=== PATIENT | male | born 1945 | race Caucasian/White ===

== ENCOUNTER 2017-03-12 14:26 | Inpatient (IN) | payer MEDICARE, OTHER ==
[~2017-03-12] VITALS: Ht 182.9 cm; Wt 90.7 kg
[2017-03-12] MEDS ORDERED: XARELTO20 MG PO (14:44)
[2017-03-12] MEDS ORDERED: COZAAR100 MG PO (14:45)
[2017-03-12] MEDS ORDERED: CRESTOR40 MG NG (14:45)
[2017-03-12] MEDS ORDERED: SYNTHROID100 MCG PO (14:46)
[2017-03-12] MEDS ORDERED: HYDROCHLOROTHIA25 MG PO (14:46)
[2017-03-12] MEDS ORDERED: OMEPRAZOLE20 M1 PO (14:47)
[2017-03-12] MEDS ORDERED: KLOR-CON 88 MEQ PO (14:47)
[2017-03-12] MEDS ORDERED: GLUCOTROL XL5 MG PO (14:48)
[2017-03-12] MEDS ORDERED: LASIX20 MG PO (14:49)
[2017-03-12] MEDS ORDERED: METFORMIN HCL1000 MG PO (14:49)
--- NOTE | 2017-03-12 18:48 | NUR ---
PT ARRIVED ON FLOOR FROM ED. PT ALERT AND OREINTATED X4. PLEASANT AND COOPERATIVE. ON VACATION FROM [facility], ANXIOUS TO CONTINUE TO [place]. PT NG TUBE FUNCTIONING WELL, NPO.
--- NOTE | 2017-03-12 19:05 | NUR ---
BEDSIDE SHIFT REPORT RECEIVED FROM CARLINE EVANGELISTA. PT IS RESTING IN BED, HAS NG TO L.I.S. DENIES PAIN. CALL LIGHT IS WITHIN REACH, DENIES FURTHER REQUESTS AT THIS TIME. WILL CONTINUE TO MONITOR.
--- NOTE | 2017-03-12 20:40 | NUR ---
ASSESSMENT COMPLETED. ALERT/ORIENTED. DENIES PAIN. LUNGS CLEAR, RA. HR IRREGUALR, HX AFIB. BOWEL TONES ACTIVE, DENIES NAUSEA. NG TO L.I.S. DRAINING SCANT AMOUNT OF GREEN DRAINAGE. DISCUSSED THAT HE MAY HAVE ICE CHIPS FOR COMFORT, BUT THAT ANYTHING BU MOUTH MAY IMPEDE HEALING AND DELAY DISCHARGE, PT STATES UNDERSTANDING. SKIN INTACT. CMS INTACT. CB, 3UNITS SLIDING SCALE ADMINISTERED. PT DENIES FURTHER REQUESTS AT THIS TIME, CALL LIGHT IS WITHIN REACH.
--- NOTE | 2017-03-12 22:00 | NUR ---
PT HAD NOT VOIDED SINCE ARRIVING TO FLOOR. BLADDER SCAN SHOWED 561ML. INFORMED DR. FLORES WHO STATED TO ENCOURAGE AMBULATION AND CONTINUE TO MONITOR. SHORTLY AFTER, PT WAS ABLE TO VOID <300ML.
--- NOTE | 2017-03-12 23:26 | NUR ---
PT APPEARS TO BE SLEEPING AT THIS TIME. RESPIRATIONS EVEN AND UNLABORED. NO APPARENT DISTRESS. WILL CONTINUE TO MONITOR.
--- NOTE | 2017-03-13 01:59 | NUR ---
PT CB. SLIDING SCALE DICTATES 1 UNIT REGULAR INSULIN BE ADMINISTERED, BUT THIS DOSE HELD PER CLINICAL JUDGEMENT SINCE PT IS NPO AND AT THE LOW END OF THE PARAMETER. WILL CONTINUE TO MONITOR.
--- NOTE | 2017-03-13 02:45 | NUR ---
PT SLEEPING, NO APAPRENT DISTRESS. RESPIRATIONS EVEN AND UNLABORED. NG TO L.I.S. WILL CONTINUE TO MONITOR.
--- NOTE | 2017-03-13 05:33 | NUR ---
ASSESSMENT COMPLETED. ALERT/ORIENTED, DENIES PAIN. LUNGS CLEAR, RA. HR IRREGULAR. BOWEL TONES ACTIVE, DENIES NAUSEA. NG TO L.I.S. DRAINING GREENISH BROWN FLUID. PT UP TO AMBULATE IN HALLWAY, WALKED 6 LAPS, TOLERATED WELL. HAS RETURNED TO BED AND DENIES FURTHER REQUESTS.
--- NOTE | 2017-03-13 05:55 | NUR ---
UNEVENTFUL SHIFT, SLEPT MAJORITY OF NIGHT. DENIES PAIN AND NAUSEA. IRREGULAR HR. BOWEL TONES ACTIVE, SOUNDING SLIGHTLY MORE HYPOACTIVE THIS MORNING. NPO, NG TO L.I.S. DRAINING SMALL AMOUNT OF GREENISH-BROWN FLUID. ABULATED IN HALLWAY X6 LAPS THIS MORNING. IV PATENT, NS @125, IV ABX: FLAGYL AND LEVAQUIN. ACCUCHECKS AND SLIDING SCALE. SBA, STEADY ON FEET. VOIDING QS.
--- NOTE | 2017-03-13 07:20 | NUR ---
RECIEVED BEDSIDE REPORT FROM CARLINE RICARDO. PT SLEEPING WELL, BREATHING EVEN AND UNLABORED.
[2017-03-13] MEDS ORDERED: LEVOFLOXAC750 MG/150 PO (10:38)
[2017-03-13] MEDS ORDERED: METRONIDAZ500 MG/100 IV (10:39)
--- NOTE | 2017-03-13 10:40 | NUR ---
PT REPORTS LARGE BM.
--- NOTE | 2017-03-13 11:18 | NUR ---
PT GIVEN DISCHARGE TEACHING AND INFORMATION. ALL QUESTIONS ANSWERED. PT UP IN SHOWER INDEPENDENTLY.
== END 2017-03-13 11:40 | disposition home or self-care (01) | DRG 389 ==
LOC: ED 14:26 → MS 17:30
PROVIDERS: ADMIT Internal Medicine
DX: K56.69 Other intestinal obstruction (principal); K57.92 Diverticulitis of intestine, part unspecified, without perforation or abscess without bleeding; E11.9 Type 2 diabetes mellitus without complications; I25.10 Atherosclerotic heart disease of native coronary artery without angina pectoris; I73.9 Peripheral vascular disease, unspecified; E87.6 Hypokalemia; I48.91 Unspecified atrial fibrillation; I10 Essential (primary) hypertension; Z79.84 Long term (current) use of oral hypoglycemic drugs; Z95.1 Presence of aortocoronary bypass graft; Z85.46 Personal history of malignant neoplasm of prostate; Z90.49 Acquired absence of other specified parts of digestive tract
CPT/HCPCS: 36415; 71010; 74177; 80048; 80053; 81001; 82150; 83690; 83735; 85025; 85610; 85730; J1170; J1956; J2405; J3475; J3480; J7060; Q9967